=== PATIENT | male | born 1960 | race Two or more races ===

== ENCOUNTER 2016-04-29 03:44 | Inpatient (IN) | payer MEDICAID ==
[~2016-04-29] VITALS: Ht 185.4 cm; Wt 83.5 kg
--- NOTE | 2016-04-29 03:50 | NUR ---
PT [id number] C/O CHEST PAIN RADITATING TO LEFT ARM SINCE YESTERDAY MORNING, WORSE BLENDER. PER RA STARTED IV ON LEFT AC 20, AND GAVE ASA 162 AND NITRO SPRAY X3 WITH NO RELIEF. PT AOX3 RR EVEN AND UNLABORED. NO SOB NOTED. NAD NOTED. NO NVD AT THIS TIME. PT GOWNED AND PLACED ON MONITOR WAITING FOR MD MARTINEZ.
[2016-04-29] MEDS ORDERED: ONDANSETRON HCL/PF 4 MG/2 ML VIAL IV ONE (04:00)
[2016-04-29] MEDS ORDERED: MORPHINE SULFATE INJ 2 MG/ML DISP.SYRIN IV ONE (04:00)
[2016-04-29] MEDS ORDERED: MORPHINE SULFATE INJ 2 MG/ML DISP.SYRIN ONE (04:15)
[2016-04-29] MEDS ORDERED: ONDANSETRON HCL/PF 4 MG/2 ML VIAL ONE (04:15)
[2016-04-29] MEDS ORDERED: MORPHINE SULFATE INJ 4 MG/ML DISP.SYRIN ONE (04:15)
[2016-04-29 04:23] LABS: BASOPHILS % (AUTO) 0.1 % (0.0-2.0); EOSINOPHILS # (AUTO) 0.3 /CMM (0.0-0.7); EOSINOPHILS % (AUTO) 2.5 % (0.0-6.0); HEMATOCRIT 37 % (39-51); HEMOGLOBIN 12.4 g/dL (13.5-17.5); LYMPHOCYTES # (AUTO) 1.3 /CMM (0.8-4.8); LYMPHOCYTES % (AUTO) 9.2 % (20.0-44.0); MEAN CORPUSCULAR HEMOGLOBIN 31 PG (26.0-33.0); MEAN CORPUSCULAR HGB CONC 33 g/dl (31.0-36.0); MEAN CORPUSCULAR VOLUME 93 fL (80-96); MONOCYTES # (AUTO) 0.9 /CMM (0.1-1.30); MONOCYTES % (AUTO) 6.5 % (2.0-12.0); NEUTROPHILS # (AUTO) 11.6 /CMM (1.8-8.9); NEUTROPHILS % (AUTO) 81.7 % (43.0-81.0); PLATELET COUNT (AUTO) 209 /CMM (150-450); RDW COEFFICIENT OF VARIATION 13.1 (11.5-15.0); RED BLOOD CELL COUNT(AUTO) 4.02 MIL/uL (4.5-6.0); WHITE BLOOD COUNT (AUTO) 14.2 K/uL (4.3-11.0)
--- NOTE | 2016-04-29 04:35 | NUR ---
XRAY AT BEDSIDE.
[2016-04-29 04:41] LABS: INR 0.97 (0.87-1.13); PROTHROMBIN TIME 10.5 SECS (9.5-12.7)
[2016-04-29 04:42] LABS: CALCIUM, SERUM 8.9 mg/dL (8.5-10.1); CARBON DIOXIDE 28 mmol/L (21-32); CHLORIDE 103 mmol/L (98-107); CREATININE 1.5 mg/dL (0.6-1.3); GFR 48 mL/min (>60); GLUCOSE 148 mg/dL (74-106); POTASSIUM 4.3 mmol/L (3.5-5.1); SODIUM SERUM 138 mmol/L (136-145); UREA NITROGEN, BLOOD 24 mg/dL (7-18)
[2016-04-29 04:51] LABS: TROPONIN I < 0.017 ng/mL (0.00-0.056)
--- NOTE | 2016-04-29 05:22 | NUR ---
PT ASSIGNED TO [facility] [id number]
--- NOTE | 2016-04-29 05:40 | NUR ---
REPORT GIVEN TO MARTI.
[2016-04-29] MEDS ORDERED: NEBI5TAB8 PO (05:47)
[2016-04-29] MEDS ORDERED: ALLO300T2 PO (05:47)
[2016-04-29] MEDS ORDERED: ATOR40TA PO (05:47)
[2016-04-29] MEDS ORDERED: SITA1TAB6 PO (05:47)
[2016-04-29 06:10] VITALS: BP 110/66
--- NOTE | 2016-04-29 06:15 | NUR ---
PT TRANSFERED VIA ACLS PROTOCOL.
--- NOTE | 2016-04-29 06:15 | NUR ---
RN NOTES ADMITTED A 56 YEARS OLD, MALE PT FROM ER WITH CHIEF COMPLAIN OF CHEST PAIN UNDER STEVE ADLER FOOD SERVICE COORDINATOR. PT ALERT AND ORIENTED X4, STILL COMPLAINING OF CHEST PAIN 6/, MORPHINE GIVEN IN ER. ATTACHED TO TELEMONITOR WHICH READS SINUS RHYTHM AT 68. VITAL SIGNS BP 110/66,HR65, TEMP97.9, RR18 O2SAT 97% AT RA. KEPT COMFORTABLE AND ATTENDED. WILL F/U FOR ADMITTING ORDERS. WILL ENDORSE TO MORNING RN FOR CONTINUITY OF CARE.
[2016-04-29] MEDS ORDERED: Z GUARD REMEDY 2 OZ OINT TP PRN (07:30)
[2016-04-29] MEDS: PANTOPRAZOLE 40 MG TABLET.DR PO SCH (07:30)
[2016-04-29] MEDS ORDERED: MAGNESIUM HYDROXIDE 30 ML UDC PO PRN (07:30)
[2016-04-29] MEDS ORDERED: ONDANSETRON HCL/PF 4 MG/2 ML VIAL IVP PRN (07:30)
[2016-04-29] MEDS ORDERED: ZOLPIDEM TARTRATE 5 MG TABLET PO PRN (07:30)
[2016-04-29] MEDS ORDERED: ACETAMINOPHEN 325 MG TABLET PO PRN (07:30)
[2016-04-29] MEDS: MORPHINE SULFATE INJ 2 MG/ML DISP.SYRIN IM PRN (07:32)
--- NOTE | 2016-04-29 07:32 | NUR ---
RN NOTE / CP MORPHINE 2MG ADMINISTERED. WILL CONTINUE TO ASSESS AND MONITOR PATIENT CONDITION. DR AWAD NOTIFIES
--- NOTE | 2016-04-29 07:38 | NUR ---
RN OPEN NOTES RECEIVED REPORT FROM BARK SPUDDER NURSE. PATIENT ADMITTED TO MED SURG FLOOR AT 0610. MED RECON HAS NOT BEEN COMPLETED YET. PATIENT COMPLAINS ON CHEST PAIN. I PAGED VITOR TO ORDER THE MORPHINE AT 0715. VITOR ORDERED AND MORPHINE GAVE. PATIENT IS IN BED, BED LOCKED IN LOW POSITION. 2 SIDE RAILS ARE UP. IV SITE IS POTENT AND INTACT. PATIENT SON AND AT BED SIDE. TOGOLESE SPEAKER. SON KNOWS SOME DEGREE OF KHMER. WILL CONTINUE TO ASSESS AND MONITOR PATIENT THROUGH OUT MY SHIFT.
--- NOTE | 2016-04-29 07:40 | NUR ---
RN NOTES PATIENT COMPLAINS ON STRONG CHEST PAIN 10/28. DR BALBUENA AND DR AWAD MADE AWARE. BPTH MD'S ARE EVALUATING THE PATIENT CONDITION AND CONTINUE OF CARE
--- NOTE | 2016-04-29 07:58 | NUR ---
RN NOTE / CP BOTH DR BALBUENA AND DR AWAD ARE AT BED SIDE. PATIENT COMPLAINS OF CHEST PAIN 10/28 DESPITE THE MORPHINE. RECEIVED NEW ORDERS. WILL CARRY NEW ORDERS. Addendum: 04/29/16 at 1129 by DELIO ROYAL RN ORDERS CARRIED OUT. CT PULMONARY ANGIOPLASTY COMPLETED. EKG COMPLETED. LOVENOX ADMINISTERED. PATIENT CAME BACK FROM CT AT 0900 WITH LOW BLOOD PRESSURE. LOPRESSOR HELD, DR AWAD NOTIFIED. FLUID BOLUS HAS BEEN GIVEN. BLOOD PRESSURE IMPROVED. WILL CONTINUE TO MONITOR AND ASSESS PATIENT CONDITION.
[2016-04-29 08:00] VITALS: BP 99/63
[2016-04-29] MEDS: METOPROLOL TARTRATE 50 MG TABLET PO SCH ×3 (08:17→20:17)
[2016-04-29] MEDS ORDERED: CT SWABBABLE VALVE TRANS SET 1 EA INFUS.SET MC ONE (08:21)
[2016-04-29] MEDS ORDERED: IOHEXOL-350 100 ML VIAL IV ONE (08:21)
[2016-04-29] MEDS ORDERED: IV NS 0.9% 250 ML IV ONE (08:21)
[2016-04-29] MEDS ORDERED: IV SET PRIMARY PUMP SET 1 EA INFUS.SET MC ONE (08:40)
[2016-04-29] MEDS: IV NS 0.9% 1,000 ML IV PRN ×3 (08:50→19:37)
[2016-04-29] MEDS: ASPIRIN 81 MG TAB.CHEW PO SCH (08:56)
[2016-04-29] MEDS ORDERED: Medication Not On Formulary EA (Sitagliptin Phos/Metformin Hcl (Janumet 50-1,000 Mg Tabl PO SCH (09:00)
[2016-04-29] MEDS: ALLOPURINOL 100 MG TABLET PO SCH (09:01)
[2016-04-29] MEDS: ENOXAPARIN SODIUM 60 MG/0.6 ML DISP.SYRIN SQ SCH ×2 (09:06→20:33)
[2016-04-29] MEDS ORDERED: SIMETHICONE SUSP 40 MG/0.6 ML BOTTLE PO PRN (10:00)
[2016-04-29] MEDS ORDERED: MAG HYDROX/AL HYDROX/SIMETH 30 ML UDC PO PRN (11:00)
[2016-04-29] MEDS: SITAGLIPTIN PHOSPHATE 50 MG TABLET PO SCH ×2 (11:37→16:34)
[2016-04-29 16:00] VITALS: BP 101/65
--- NOTE | 2016-04-29 16:34 | NUR ---
RN NOTES / EB PARSON HELD TODAY DUE TO PATIENT'S PROCEDURE: CT WITH CONTRAST. EB TO BE HELD 48 HOURS AFTER PROCEDURE AND TO BE RESUME AGAIN ON 05/01/2016
[2016-04-29] MEDS: ATORVASTATIN 40 MG TABLET PO SCH (18:37)
--- NOTE | 2016-04-29 18:46 | NUR ---
RN CLOSING NOTES PATIENT IS IN BED, AWAKE. NO SIGN AND SYMPTOMS OF DISTRESS. CHEST PAIN 4/10 COMING DOWN. PAIN DID NOT RELIVED BY MORPHINE BUT IMPROVED WITH MAALOX. DR AWAD MADE AWARE. IV SITE IS POTENT AND INTACT. IV FLUID NS IS CURRENTLY RUNNING AT 125 ML/HR. PATIENT IS ALERT AND ORIENTED X3. 2L NC, O2 99%. TOMORROW MORNING: NEED TO FOLLOW UP WITH DR AWAD IF LOPRESSOR CAN BE GIVEN. LOPRESSOR HELD TODAY DUE TO LOW BLOOD PRESSURE. HOLD JANUVIA ON 04/30 AND RESUME ON 05/01 DUE TO IV CONTRAST TODAY AT 0830. PATIENT IS AMBULATORY AND SKIN IS INTACT. WILL ENDORSE TO TON CONTAINER FILLER NURSE FOR CONTINUATION OF CARE.
--- NOTE | 2016-04-29 19:35 | NUR ---
SSIS ETL DEVELOPER NOTE RECEIVED PATIENT FROM DAY SHIFT, PATIENT IS ALERT AND ORIENTEDX4, DENIES RESPIRATORY DISTRESS AND COMPLAINS OF MILD CHEST PAIN AT THIS TIME. IV ON LEFT AC IS PATENT AND INTACT, FLUID IS RUNNING.TELE MONITOR SR 73. SRX2, BED IN LOW POSITION, CALL LIGHT WITHIN REACH, WILL CONTINUE TO MONITOR PATIENT.
--- NOTE | 2016-04-29 20:20 | NUR ---
CONVERSION MAN NOTE PATIENT'S BP AT 1999 WAS 103/60 PULSE 71. HELD LOPRESSOR 50MG PO.
[2016-04-29 20:52] VITALS: BP 103/60
[2016-04-29] MEDS: HYDROCODONE/APAP 5/325MG 1 EACH TABLET PO PRN (22:54)
--- NOTE | 2016-04-29 22:55 | NUR ---
ACIDIZER NOTE PATIENT COMPLAINS OF HEADACHE 09/27, NORCO 5-325MG PO GIVEN. WILL MONITOR FOR EFFECTIVENESS.
[2016-04-30] VITALS: BP 98/58
[2016-04-30] MEDS: METOPROLOL TARTRATE 50 MG TABLET PO SCH ×4 (02:17→20:17)
[2016-04-30] MEDS: IV NS 0.9% 1,000 ML IV PRN ×3 (02:56→19:09)
[2016-04-30 04:30] VITALS: BP 91/61
[2016-04-30 06:12] LABS: BASOPHILS % (AUTO) 0.2 % (0.0-2.0); EOSINOPHILS # (AUTO) 0.2 /CMM (0.0-0.7); EOSINOPHILS % (AUTO) 2.1 % (0.0-6.0); HEMATOCRIT 33 % (39-51); HEMOGLOBIN 11.1 g/dL (13.5-17.5); LYMPHOCYTES # (AUTO) 1.4 /CMM (0.8-4.8); LYMPHOCYTES % (AUTO) 12.4 % (20.0-44.0); MEAN CORPUSCULAR HEMOGLOBIN 32 PG (26.0-33.0); MEAN CORPUSCULAR HGB CONC 34 g/dl (31.0-36.0); MEAN CORPUSCULAR VOLUME 94 fL (80-96); MONOCYTES # (AUTO) 1.3 /CMM (0.1-1.30); MONOCYTES % (AUTO) 11.6 % (2.0-12.0); NEUTROPHILS # (AUTO) 8.3 /CMM (1.8-8.9); NEUTROPHILS % (AUTO) 73.7 % (43.0-81.0); PLATELET COUNT (AUTO) 177 /CMM (150-450); RDW COEFFICIENT OF VARIATION 13.3 (11.5-15.0); RED BLOOD CELL COUNT(AUTO) 3.54 MIL/uL (4.5-6.0); WHITE BLOOD COUNT (AUTO) 11.2 K/uL (4.3-11.0)
[2016-04-30 06:20] LABS: ALANINE AMINOTRANSFERASE 21 U/L (12-78); ALBUMIN 2.8 g/dL (3.4-5.0); ALKALINE PHOSPHATASE 64 U/L (46-116); ASPARTATE AMINOTRANSFERASE 10 U/L (15-37); BILIRUBIN,TOTAL 0.9 mg/dL (0.2-1.0); CALCIUM, SERUM 8.2 mg/dL (8.5-10.1); CARBON DIOXIDE 28 mmol/L (21-32); CHLORIDE 107 mmol/L (98-107); CREATININE 1.2 mg/dL (0.6-1.3); GFR 63 mL/min (>60); GLUCOSE 143 mg/dL (74-106); MAGNESIUM 1.8 mg/dL (1.8-2.4); PHOSPHORUS 2.4 mg/dL (2.5-4.9); POTASSIUM 4.9 mmol/L (3.5-5.1); SODIUM SERUM 139 mmol/L (136-145); TOTAL PROTEIN, SERUM 6.4 g/dL (6.4-8.2); UREA NITROGEN, BLOOD 17 mg/dL (7-18)
[2016-04-30 06:40] LABS: TROPONIN I < 0.017 ng/mL (0.00-0.056)
--- NOTE | 2016-04-30 06:40 | NUR ---
MORTUARY BEAUTICIAN NOTE PATIENT IS RESTING IN BED COMFORTABLY, NO ACUTE EVENT NOTED DURING THE PROFILING MACHINE SETUP OPERATOR. IV ON LEFT AC IS PATENT AND INTACT, FLUID IS RUNNING. TELE MONITOR SR. WILL ENDORSE TO DAY SHIFT FOR KAILEY.
--- NOTE | 2016-04-30 07:14 | NUR ---
COMBINATION MACHINE TENDER INITIAL NOTES RECEIVED PATIENT IN BED AWAKE WITH AT BEDSIDE. ALERT AND ORIENTED X4, HEAD OF BED ELEVATED. ABLE TO VERBALIZED NEEDS WITH NO COMPLAINTS OF CHEST PAIN AT THIS TIME. IV ACCESS ON ON LEFT AC PATENT AND INTACT, IVF OF NS @ 125ML/HR IN PROGRESS, NO SIGNS OF INFILTRATION NOTED. ON TELE MONITORING WITH READINGS OF SINUS BRADYCARDIA WITH HR OF 49 @ THIS TIME. BED IN LOW POSITION AND LOCKED, CALL LIGHT WITHIN REACH. ALL SAFETY PRECAUTIONS MAINTAINED. WILL CONTINUE TO MONITOR PATIENT ACCORDINGLY. Addendum: 04/30/16 at 0857 by KI GORMAN RN ADDENDUM: PATIENT ON INHALATION VIA N/C @ 2LPM, TOLERATING WELL WITH NO ACUTE RESPIRATORY DISTRESS NOTED WITH 02 SAT OF 100%. WILL CONTINUE TO MONITOR
[2016-04-30 08:00] VITALS: BP 97/60
[2016-04-30] MEDS: ASPIRIN 81 MG TAB.CHEW PO SCH (08:12)
[2016-04-30] MEDS: PANTOPRAZOLE 40 MG TABLET.DR PO SCH (08:12)
[2016-04-30] MEDS: ALLOPURINOL 100 MG TABLET PO SCH (08:13)
[2016-04-30] MEDS: ENOXAPARIN SODIUM 60 MG/0.6 ML DISP.SYRIN SQ SCH (08:14)
[2016-04-30] MEDS: SITAGLIPTIN PHOSPHATE 50 MG TABLET PO SCH ×2 (08:27→16:52)
--- NOTE | 2016-04-30 09:33 | NUR ---
RN NOTES: PATIENT'S JANUVIA NOT GIVEN TODAY, IT'S HELD X48 HOURS AFTER PROCEDURE ( CT SCAN) AND TO BE RESUMED ON 05/01/2016.
--- NOTE | 2016-04-30 09:41 | NUR ---
RN NOTES DR AWAD ORDERED NUCLEAR MEDICINE MYOCARDIAL STRESS TEST FOR PATIENT. PROCEDURE EXPLAINED TO PATIENT AND , THEY VERBALIZED UNDERSTANDING. CONSENT SIGNED AND PLACED ON THE CHART.
[2016-04-30 10:32] LABS: CHOLESTEROL 69 mg/dL (<200); HDL CHOLESTEROL 28 mg/dL (40-60); LDL 32 mg/dL (0-99); TRIGLYCERIDES 81 mg/dL (30-150)
[2016-04-30] MEDS: HYDROCODONE/APAP 5/325MG 1 EACH TABLET PO PRN ×2 (12:10→17:42)
--- NOTE | 2016-04-30 15:58 | NUR ---
RN NOTES RECEIVED CALL FROM RADIOLOGY THAT PATIENT IS SCHEDULED ALREADY FOR NM MYOCARDIAL STRESS TEST TOMORROW MORNING (05/01/2016). PATIENT INFORMED AND TOLD HIM THAT HE WILL BE NPO AFTER MIDNIGHT AND VERBALIZED UNDERSTANDING. WILL ENDORSED TO HISTOLOGIC AIDE STAFF.
[2016-04-30 16:00] VITALS: BP 104/61
[2016-04-30] MEDS: ATORVASTATIN 40 MG TABLET PO SCH (17:37)
--- NOTE | 2016-04-30 18:52 | NUR ---
AGRICULTURAL EQUIPMENT MECHANIC CLOSING NOTES PATIENT RESTING IN BED WITH AT BEDSIDE. ALERT AND ORIENTED X4 IN NO ACUTE SIGNS OF DISTRESS. ALL DUE MEDS GIVEN PRESCRIBED AND DUE NEEDS/CARE PROVIDED. MAINTAINED ON 02 VIA N/C @ 2LPM, TOLERATING WELL WITH 02 SAT OF 98%. IVF OF NS @ 125ML/HR IN PROGRESS TO LEFT AC, NO SIGNS OF INFILTRATION OR PHLEBITIS TO IV SITE NOTED. CALL LIGHT WITHIN REACH. SAFETY PRECAUTIONS MAINTAINED. PATIENT FOR NM MYOCARDIAL STRESS TEST TOMORROW, 05/01/2016, CONSENT SIGNED. NPO POST MIDNIGHT. WILL ENDORSED TO FINE ARTS MODEL RN.
--- NOTE | 2016-04-30 19:38 | NUR ---
MS RN NOTE RECEIVED PATIENT FROM DAY SHIFT, PATIENT IS ALERT AND ORIENTEDX4, UZBEK SPEAKER, DENIES RESPIRATORY DISTRESS AND COMPLAINS OF MILD HEADACHE AT THIS TIME. IV ON LEFT AC IS PATENT AND INTACT, FLUID IS RUNNING. SRX2, BED IN LOW POSITION, CALL LIGHT WITHIN REACH, WILL CONTINUE TO MONITOR PATIENT.
[2016-04-30 20:00] VITALS: BP_SYST 106; BP_SYST 111; BP_DIAS 68; BP_DIAS 73
[2016-05-01] MEDS: MORPHINE SULFATE INJ 2 MG/ML DISP.SYRIN IM PRN ×2 (00:44→23:20)
--- NOTE | 2016-05-01 00:49 | NUR ---
MS RN NOTE PATIENT COMPLAINS OF CHEST PAIN, MORPHINE 2MG IVP GIVEN. WILL MONITOR FOR EFFECTIVENESS.
[2016-05-01] MEDS: METOPROLOL TARTRATE 50 MG TABLET PO SCH ×4 (02:17→20:48)
[2016-05-01] MEDS: IV NS 0.9% 1,000 ML IV PRN ×2 (03:16→23:20)
--- NOTE | 2016-05-01 06:32 | NUR ---
MS RN NOTE PATIENT IS RESTING IN BED COMFORTABLY, DENIES RESPIRATORY DISTRESS AND COMPLAINS OF MILD CHEST PAIN AT THIS TIME, BUT TOLERABLE. IV ON LEFT AC IS PATENT AND INTACT, FLUID IS RUNNING. WILL ENDORSE TO DAY SHIFT NURSE FOR KAILEY.
[2016-05-01 06:54] LABS: BASOPHILS % (AUTO) 0.1 % (0.0-2.0); EOSINOPHILS % (AUTO) 0.2 % (0.0-6.0); HEMATOCRIT 35 % (39-51); HEMOGLOBIN 11.6 g/dL (13.5-17.5); LYMPHOCYTES # (AUTO) 1.1 /CMM (0.8-4.8); LYMPHOCYTES % (AUTO) 8.9 % (20.0-44.0); MEAN CORPUSCULAR HEMOGLOBIN 31 PG (26.0-33.0); MEAN CORPUSCULAR HGB CONC 33 g/dl (31.0-36.0); MEAN CORPUSCULAR VOLUME 94 fL (80-96); MONOCYTES # (AUTO) 1.4 /CMM (0.1-1.30); MONOCYTES % (AUTO) 11.1 % (2.0-12.0); NEUTROPHILS # (AUTO) 9.7 /CMM (1.8-8.9); NEUTROPHILS % (AUTO) 79.7 % (43.0-81.0); PLATELET COUNT (AUTO) 174 /CMM (150-450); RDW COEFFICIENT OF VARIATION 13.3 (11.5-15.0); RED BLOOD CELL COUNT(AUTO) 3.71 MIL/uL (4.5-6.0); WHITE BLOOD COUNT (AUTO) 12.2 K/uL (4.3-11.0)
[2016-05-01 07:04] LABS: ALBUMIN 2.7 g/dL (3.4-5.0); BILIRUBIN,TOTAL 0.9 mg/dL (0.2-1.0); CALCIUM, SERUM 8.1 mg/dL (8.5-10.1); CREATININE 1.1 mg/dL (0.6-1.3); MAGNESIUM 1.9 mg/dL (1.8-2.4); PHOSPHORUS 2.4 mg/dL (2.5-4.9); POTASSIUM 4.6 mmol/L (3.5-5.1); TOTAL PROTEIN, SERUM 6.6 g/dL (6.4-8.2)
[2016-05-01] MEDS: PANTOPRAZOLE 40 MG TABLET.DR PO SCH (07:30)
[2016-05-01 08:00] VITALS: BP 126/84
--- NOTE | 2016-05-01 08:15 | NUR ---
MS/RN AM NOTES RECEIVED PATIENT IN BED, AWAKE, ALERT, WITHOUT SOB, C/O CHEST TIGHTNESS 04/27, AWARE ABOUT CARDIAC TEST, REMAINS NPO. IV LEFT AC PATENT, PATIENT IS COMFORTABLE IN BED WITH CALL LIGHT WITHIN EASY REACH. WILL CONTINUE TO MONITOR ACCORDINGLY
[2016-05-01] MEDS ORDERED: REGADENOSON 0.4 MG/5 ML DISP.SYRIN IVP ONE (09:00)
--- NOTE | 2016-05-01 10:38 | NUR ---
CARDIAC TEST DONE, PATIENT BACK TO HIS ROOM, VS 111/74, 76, 99 % RA, 20, C/O CHEST TIGHTNESS PAIN 09/27. NO SOB, O2 APPLIED 2L/M N/C. SEEN BY DR. AWAD WITH ORDER NITRO SL. MYLANTA FOR STOMACH UPSET, EKG STAT. DR. MONIQUE CRUZ EXAMINING PATIENT, ORDER RECEIVED TORADOL 15 MG IM X 1, AND TO NOTIFY PHYSICIAN FOR EFFECTIVENESS. NOTED CARRIED OUT.
--- NOTE | 2016-05-01 10:56 | NUR ---
REASSESSED CHEST PAIN WITH TIGHTNESS, RELIEVED 5/10 AFTER NITRO SL ADMINISTRATION. AWAKE, VERBALLY RESPONSIVE, NO CHANGES IN MENTAL STATUS, FAMILY AT THE BEDSIDE.DR AWAD INFORMED. VITAL SIGNS 87/67, 90, 20, 98.0 93 % WITH 2L/M N/C, NO SOB, RESPIRATION UNLABORED, EVEN. PATIENT PICKED UP BY BENJA, ON W/C WITH [address], FOR SECOND PART OF CARDIAC TEST
[2016-05-01] MEDS ORDERED: KETOROLAC TROMETHAMINE INJ 30 MG/ML VIAL IV ONE (11:00)
[2016-05-01] MEDS ORDERED: NITROGLYCERIN 0.4 MG/TAB BOTTLE SL PRN (11:00)
--- NOTE | 2016-05-01 12:27 | NUR ---
INFORMED DR. MONIQUE CRUZ PATIENT RELIEVED FROM PAIN 6/0 AFTER NITRO SL, PER MD OK TO GIVE TORADOL 15 MG IV X 1, WILL CONTINUE TO MONITOR ACCORDINGLY, AND NOTIFY MD IF ANY FURTHER CHANGED
--- NOTE | 2016-05-01 13:00 | NUR ---
PATIENT HAS NO CHEST PAIN OR TIGHTNESS, 0/10 . AWAKE ALERT, IN HAPPY MOOD, EATING LUNCH. DR. MONIQUE CRUZ MADE AWARE ABOUT PATEIN'S CONDITION.
[2016-05-01] MEDS: SITAGLIPTIN PHOSPHATE 50 MG TABLET PO SCH ×2 (13:52→16:31)
[2016-05-01] MEDS: ALLOPURINOL 100 MG TABLET PO SCH (13:53)
[2016-05-01] MEDS: ASPIRIN 81 MG TAB.CHEW PO SCH (13:53)
[2016-05-01] MEDS ORDERED: K PHOS NEUTRAL 250 MG TABLET PO ONE (15:30)
--- NOTE | 2016-05-01 15:47 | NUR ---
HELD BLOOD PRESSURE MEDICATION. VITAL SIGNS 92/67, 89, 95% WITH O2 2L/M N/C, 20, 98.5, 0/10 PAIN. PATIENT AWAKE, ALERT, NO CHEST PAIN. WILL CONTINUE TO MONITOR
[2016-05-01 16:00] VITALS: BP 92/67
--- NOTE | 2016-05-01 17:55 | NUR ---
ORDERS RECEIVED FOR UPPER GI ENDOSCOPY OVER THE PHONE, FROM DR. HO PER DR. MONIQUE CRUZ'S REFERRAL FOR GI CONSULT SUSPECTING GASTRITIS. ORDERS NOTED, CARRIED OUT, WILL INITIATE NPO AFTER MIDNIGHT ORDERED PER DR. HO. PATIENT AND FAMILY INFORMED, WILL ENDORSE TO THE FISH DRESSING MACHINE FEEDER
[2016-05-01] MEDS: ATORVASTATIN 40 MG TABLET PO SCH (18:50)
--- NOTE | 2016-05-01 18:58 | NUR ---
MS/RN CLOSING NOTES PATIENT IS IN BED, AWAKE, ALERT, SPOUSE AT THE BEDSIDE, NO SOB, NO CHEST PAIN, 0/10, RESTING COMFORTABLY IN BED. O2 IN PACE 2L/M N/C, TOLERATING WELL, IV LINE PATENT LAC . NO DIC
--- NOTE | 2016-05-01 19:30 | NUR ---
rn note; received pt in bed w/ family at the bed side. breathing evenly. no sob. no distress. no c/o pain or discomfort. denied chest pain. needs attended. on ongoing ivf hydration./ call light within reach. will cont to monitor.
[2016-05-01 20:00] VITALS: BP 131/87
[2016-05-01 20:14] VITALS: BP 131/87
--- NOTE | 2016-05-01 23:20 | NUR ---
RN NOTE; MORPHINE GIVEN FOR C/O CHEST PAIN. WILL CONT TO MONITOR. USING NURSING STAFF INTERPRETED EXPLAINED THE PROCEDURE FOR THE PT FOR UPPER GI ENDOSCOPY FOR CONSENT. PT UNDERSTOOD THE PROCEDURE AND OK WITH IT HOWEVER WILL WAIT FOR THE TO SIGN THE CONSENT. PER PT HIS WILL BE HERE AROUND 8AM. WILL ENDORSE TO AM SHIFT.
[2016-05-02] MEDS: METOPROLOL TARTRATE 50 MG TABLET PO SCH ×2 (03:21→11:57)
--- NOTE | 2016-05-02 06:06 | NUR ---
RN NOTE; PT IN BED SLEEPING, AROUSES EASILY, BREATHING EVENLY. NO SOB. NO DISTRESS. REMAINED STABLE DURING THE MANAGER SOLAR W/ ONE TIME C/O CP WHICH RELIVED BY MORPHINE. REMAINED NPO AT THIS TIME FOR UPPER GI ENDOSCOPY TODAY. WILL SIGN THE CONSENT. ON ONGOING IVF HYDRATION. TIANA WELL. NEEDS ATTENDED . BED LOW LOCKED. CALL LIGHT WITHIN REACH. WILL CONT TO MONITOR AND WILL ENDORSE TO AM SHIFT FOR KAILEY.
[2016-05-02 07:10] LABS: BASOPHILS % (AUTO) 0.1 % (0.0-2.0); EOSINOPHILS % (AUTO) 0.4 % (0.0-6.0); HEMATOCRIT 34 % (39-51); HEMOGLOBIN 11.3 g/dL (13.5-17.5); LYMPHOCYTES # (AUTO) 1.3 /CMM (0.8-4.8); LYMPHOCYTES % (AUTO) 10.7 % (20.0-44.0); MEAN CORPUSCULAR HEMOGLOBIN 31 PG (26.0-33.0); MEAN CORPUSCULAR HGB CONC 34 g/dl (31.0-36.0); MEAN CORPUSCULAR VOLUME 94 fL (80-96); MONOCYTES # (AUTO) 1.3 /CMM (0.1-1.30); MONOCYTES % (AUTO) 10.1 % (2.0-12.0); NEUTROPHILS # (AUTO) 9.9 /CMM (1.8-8.9); NEUTROPHILS % (AUTO) 78.7 % (43.0-81.0); PLATELET COUNT (AUTO) 200 /CMM (150-450); RDW COEFFICIENT OF VARIATION 13.2 (11.5-15.0); RED BLOOD CELL COUNT(AUTO) 3.59 MIL/uL (4.5-6.0); WHITE BLOOD COUNT (AUTO) 12.6 K/uL (4.3-11.0)
--- NOTE | 2016-05-02 07:13 | NUR ---
RN OPEN NOTES RECEIVED REPORT FROM TRACK LAYING MACHINE OPERATOR NURSE. PATIENT IS IN BED. ALERT AND ORIENTED X3. NO COMPLAIN OF PAIN. NO SIGN AND SYMPTOMS OF DISTRESS. BED IS IN LOW POSITION, LOCKED AND 2 SIDE RAILS ARE UP. IV SITE IS INTACT AND POTENT, NS @125 ML/HR. WILL CONTINUE TO ASSESS AND MONITOR PATIENT DURING MY SHIFT.
[2016-05-02 07:34] LABS: ALBUMIN 2.5 g/dL (3.4-5.0); BILIRUBIN,TOTAL 0.9 mg/dL (0.2-1.0); CALCIUM, SERUM 8.1 mg/dL (8.5-10.1); CREATININE 1.1 mg/dL (0.6-1.3); PHOSPHORUS 2.4 mg/dL (2.5-4.9); POTASSIUM 3.9 mmol/L (3.5-5.1); TOTAL PROTEIN, SERUM 6.4 g/dL (6.4-8.2)
[2016-05-02 08:00] VITALS: BP 117/78
[2016-05-02] MEDS ORDERED: IV SET PRIMARY PUMP SET 1 EA INFUS.SET MC ONE (08:22)
[2016-05-02] MEDS: IV NS 0.9% 1,000 ML IV PRN (08:27)
--- NOTE | 2016-05-02 08:38 | NUR ---
RN NOTES 0900 MEDS PATIENT IS NPO. HELD ALL MEDS. WILL ADMINISTER AFTER THE PATIENT COMING BACK FROM EGD
--- NOTE | 2016-05-02 08:50 | NUR ---
CARIN NOTES PATIENT IS OFF THE FLOOR FOR EGD PROCEDURE Addendum: 05/02/16 at 1026 by DELIO ROYAL RN PATIENT CAME BACK TO THE FLOOR.
[2016-05-02] MEDS: ASPIRIN 81 MG TAB.CHEW PO SCH (11:56)
[2016-05-02] MEDS: ALLOPURINOL 100 MG TABLET PO SCH (11:56)
[2016-05-02] MEDS: SITAGLIPTIN PHOSPHATE 50 MG TABLET PO SCH (11:56)
[2016-05-02] MEDS: PANTOPRAZOLE 40 MG TABLET.DR PO SCH (11:56)
[2016-05-02 11:57] VITALS: BP 123/82
[2016-05-02] MEDS ORDERED: PANT40TA2 PO (13:16)
[2016-05-02] MEDS ORDERED: SUCR1TAB26 PO (13:16)
--- NOTE | 2016-05-02 15:01 | NUR ---
DISCHARGE NOTE DISCHARGE ORDERS RECEIVED. PATIENT IS STABLE. VITAL SIGNS ARE STABLE. PATIENT DENIED PAIN. NO SIGN AND SYMPTOMS OF DISTRESS. IV SITE REMOVED. ID BAND REMOVED. DISCHARGE PACKAGE PRINTED AND GAVE TO PATIENT. DISCHARGE ORDERS EXPLAINED TO PATIENT AND . PATIENT DC'S WITH ALL HIS PERSONAL BELONGING. PATIENT ESCORTED DOWN WITH A WHEELCHAIR BY A PUMPMAN AND HIS . PATIENT LEFT THE HOSPITAL VIA A PRIVATE CAR
== END 2016-05-02 15:00 | disposition home or self-care (01) | DRG 241 ==
LOC: ER 03:47 → TELE 05:27 → MED 04-30 20:19
PROVIDERS: ADMIT Nurse Practitioner Acute Care; ATTEND Internal Medicine
PROC: 0DJ08ZZ Inspection of Upper Intestinal Tract, Via Natural or Artificial Opening Endoscopic (ICD-10-PCS; principal; 2016-05-02 09:17)
DX: K29.60 Other gastritis without bleeding (principal); N17.0 Acute kidney failure with tubular necrosis; I11.9 Hypertensive heart disease without heart failure; E11.9 Type 2 diabetes mellitus without complications; D72.829 Elevated white blood cell count, unspecified; K25.9 Gastric ulcer, unspecified as acute or chronic, without hemorrhage or perforation; I27.2 Other secondary pulmonary hypertension; J98.11 Atelectasis; M10.9 Gout, unspecified; Z95.5 Presence of coronary angioplasty implant and graft; I25.10 Atherosclerotic heart disease of native coronary artery without angina pectoris
CPT/HCPCS: 36415; 71010-TC; 80048-TC; 80053-TC; 80061-TC; 83735-TC; 83880; 84100-TC; 84484-TC; 85025-TC; 85610-TC; 87081-TC; 88305-TC; 88313-TC; 88342; 93307-TC; 94799-TC; A4606; A9502; J1650; J1885; J2270; J2405; J2785; J7030; J7050; Q9967; Z7610

== ENCOUNTER 2016-05-13 15:49 | Inpatient (IN) | payer MEDICAID ==
[~2016-05-13] VITALS: Ht 177.8 cm; Wt 79.4 kg
[~2016-05-13 15:49] MED LIST: ALLO300T2 PO; ATOR40TA PO; NEBI5TAB8 PO; PANT40TA2 PO; SITA1TAB6 PO; SUCR1TAB26 PO
--- NOTE | 2016-05-13 15:49 | NUR ---
PT BIB SON C/O CHEST PAIN RADIATES TO LEFT SHOULDER X LAST NIGHT. PLACED ON MONITOR. VSS. AWAITING MD ORDER.
--- NOTE | 2016-05-13 16:10 | NUR ---
XRAY AT BEDSIDE
--- NOTE | 2016-05-13 16:18 | NUR ---
RAC #[id number] IV ACCESS . BLOOD SAMPLE COLLECTED SENT TO LAB
[2016-05-13] MEDS ORDERED: PANT40TA2 PO (16:30)
[2016-05-13] MEDS ORDERED: SUCR1TAB26 PO (16:30)
[2016-05-13] MEDS ORDERED: ASPI81TA2 PO (16:31)
[2016-05-13 16:35] LABS: BASOPHILS # (AUTO) 0.3 /CMM (0.0-0.2); BASOPHILS % (AUTO) 1.7 % (0.0-2.0); EOSINOPHILS % (AUTO) 0.2 % (0.0-6.0); HEMATOCRIT 39 % (39-51); HEMOGLOBIN 12.5 g/dL (13.5-17.5); LYMPHOCYTES # (AUTO) 1.1 /CMM (0.8-4.8); LYMPHOCYTES % (AUTO) 6.5 % (20.0-44.0); MEAN CORPUSCULAR HEMOGLOBIN 30 PG (26.0-33.0); MEAN CORPUSCULAR HGB CONC 32 g/dl (31.0-36.0); MEAN CORPUSCULAR VOLUME 93 fL (80-96); MONOCYTES # (AUTO) 1.1 /CMM (0.1-1.30); MONOCYTES % (AUTO) 6.4 % (2.0-12.0); NEUTROPHILS # (AUTO) 14.7 /CMM (1.8-8.9); NEUTROPHILS % (AUTO) 85.2 % (43.0-81.0); PLATELET COUNT (AUTO) 382 /CMM (150-450); RDW COEFFICIENT OF VARIATION 12.9 (11.5-15.0); RED BLOOD CELL COUNT(AUTO) 4.13 MIL/uL (4.5-6.0); WHITE BLOOD COUNT (AUTO) 17.3 K/uL (4.3-11.0)
[2016-05-13 16:39] LABS: CALCIUM, SERUM 9.6 mg/dL (8.5-10.1); CARBON DIOXIDE 24 mmol/L (21-32); CHLORIDE 101 mmol/L (98-107); CREATININE 2.3 mg/dL (0.6-1.3); GFR 30 mL/min (>60); GLUCOSE 132 mg/dL (74-106); POTASSIUM 4.9 mmol/L (3.5-5.1); SODIUM SERUM 137 mmol/L (136-145); UREA NITROGEN, BLOOD 43 mg/dL (7-18)
[2016-05-13 16:46] LABS: ALANINE AMINOTRANSFERASE 89 U/L (12-78); ALBUMIN 3.2 g/dL (3.4-5.0); ALKALINE PHOSPHATASE 140 U/L (46-116); ASPARTATE AMINOTRANSFERASE 55 U/L (15-37); BILIRUBIN,DIRECT 0.1 mg/dL (0.0-0.2); BILIRUBIN,TOTAL 0.5 mg/dL (0.2-1.0); TOTAL PROTEIN, SERUM 8.2 g/dL (6.4-8.2)
[2016-05-13 16:48] LABS: TROPONIN I < 0.017 ng/mL (0.00-0.056)
[2016-05-13 16:56] LABS: INR 1.1 (0.87-1.13); PROTHROMBIN TIME 11.8 SECS (9.5-12.7)
[2016-05-13] MEDS ORDERED: ONDANSETRON HCL/PF 4 MG/2 ML VIAL IVP ONE (17:00)
[2016-05-13] MEDS ORDERED: ASPIRIN 81 MG TAB.CHEW PO ONE (17:00)
[2016-05-13] MEDS ORDERED: NITROGLYCERIN PACKET 1 GM PACKET TD ONE (17:00)
[2016-05-13] MEDS ORDERED: MORPHINE SULFATE INJ 2 MG/ML DISP.SYRIN IV ONE (17:00)
[2016-05-13] MEDS ORDERED: ASPIRIN 81 MG TAB.CHEW ONE (17:02)
[2016-05-13] MEDS ORDERED: MORPHINE SULFATE INJ 4 MG/ML DISP.SYRIN ONE (17:02)
[2016-05-13] MEDS ORDERED: ONDANSETRON HCL/PF 4 MG/2 ML VIAL ONE (17:03)
[2016-05-13] MEDS ORDERED: NITROGLYCERIN PACKET 1 GM PACKET ONE (17:03)
--- NOTE | 2016-05-13 17:45 | NUR ---
CALLED PHARMACY FOR AZITHROMYCIN PREMIX
--- NOTE | 2016-05-13 17:45 | NUR ---
LAB AT BEDSIDE COLLECTING BLOOD FOR SEPSIS WORKUP
[2016-05-13] MEDS ORDERED: IV SET PRIMARY PUMP SET 1 EA INFUS.SET MC ONE ×3 (17:50→20:58)
[2016-05-13] MEDS ORDERED: CEFTRIAXONE 1GM BAG (ER ONLY) 50 ML IV ONE ×2 (17:50→18:00)
[2016-05-13] MEDS ORDERED: AZITHROMYCIN 500 MG in IV D5W 250 ML IV ONE (18:00)
[2016-05-13 18:17] LABS: LACTIC ACID 1.2 mmol/L (0.4-2.0)
--- NOTE | 2016-05-13 18:44 | NUR ---
GAVE REPORT TO CARIN HAMPTON. TELEMETRY [id number]
[2016-05-13] MEDS ORDERED: IV NS 0.9% 1,000 ML IV PRN (18:48)
[2016-05-13 18:52] LABS: APPEARANCE,URINE Clear (CLEAR); BILIRUBIN,URINE Negative (NEGATIVE); BLOOD, URINE Negative Ery/uL (NEGATIVE); COLOR,URINE Yellow (YELLOW); KETONES,URINE Negative (NEGATIVE); LEUKOCYTE ESTERASE ,URINE Negative (NEGATIVE); NITRITE, URINE Negative (NEGATIVE); PROTEIN,URINE 30 mg/dl (NEGATIVE); UGLUCOSE Negative (NEGATIVE); UROBILINOGEN,URINE 0.2 EU/dL (0.2)
[2016-05-13] MEDS ORDERED: ACETAMINOPHEN 325 MG TABLET PO PRN (19:00)
[2016-05-13] MEDS: IV NS 0.9% 1,000 ML IV SCH (19:00)
[2016-05-13] MEDS ORDERED: MAG HYDROX/AL HYDROX/SIMETH 30 ML UDC PO PRN (19:00)
[2016-05-13] MEDS ORDERED: MAGNESIUM HYDROXIDE 30 ML UDC PO PRN (19:00)
[2016-05-13] MEDS ORDERED: INSULIN REGULAR, HUMAN 100 UNIT/ML 3 ML VIAL SQ PRN (19:00)
[2016-05-13] MEDS ORDERED: ONDANSETRON HCL/PF 4 MG/2 ML VIAL IVP PRN (19:00)
[2016-05-13] MEDS ORDERED: *INSULIN REGULAR(HUMULIN R)HUM 100 UNIT/ML VIAL SQ PRN (19:00)
[2016-05-13] MEDS ORDERED: ZOLPIDEM TARTRATE 5 MG TABLET PO PRN (19:00)
[2016-05-13] MEDS ORDERED: Z GUARD REMEDY 2 OZ OINT TP PRN (19:00)
[2016-05-13] MEDS ORDERED: DEXTROSE 50%-WATER 50 ML DISP.SYRIN IV PRN (19:00)
[2016-05-13 19:30] VITALS: BP 90/57
--- NOTE | 2016-05-13 19:30 | NUR ---
RN NOTES RECEIVED PT FROM ER WITH DX. OF CHEST PAIN DUE TO PNA, A/OX4, SW[place] SPEAKING, FAMILY AT BEDSIDE, SR ON TELE MONITOR HR-80, COMPLAINED OF SHOULDER PAIN, ADMISSION INSTRUCTION WAS GIVEN CALL LIGHT WITHIN REACH, SIDERAILS UPX2 CONTINUE TO MONITOR
[2016-05-13 20:00] VITALS: BP 89/57
--- NOTE | 2016-05-13 20:15 | NUR ---
RN NOTES DR. AKBAR CAME AND INFORMED HER REGARDING PT. BLOOD PRESSURE IS 89/55 BUT PT. IS ASYMPTOMATIC. DR. AKBAR WENT TO SEE THE PT AND NO ORDER WAS GIVEN, JUST MONITOR THE PT.
[2016-05-13] MEDS: PANTOPRAZOLE 40 MG VIAL IV SCH (21:10)
[2016-05-13] MEDS: SUCRALFATE 1 G TABLET PO SCH (21:10)
[2016-05-13] MEDS: HYDROCODONE/APAP 5/325MG 1 EACH TABLET PO PRN (21:10)
[2016-05-13] MEDS ORDERED: BLOOD SUGAR DIAGNOSTIC 1 EACH STRIP IN SCH (22:00)
[2016-05-13] MEDS: BLOOD SUGAR DIAGNOSTIC 1 EACH STRIP VI SCH (22:05)
[2016-05-13 23:20] LABS: ADD URINE CULTURE NO; BACTERIA,URINE None seen /HPF (None Seen); HYALINE CASTS, URINE Few /LPF (None Seen); RBC,URINE 0-2 /HPF (0-2); SQUAMOUS EPITHELIAL CELL,UR Few /HPF (None Seen); WBC,URINE 0-2 /HPF (0-3)
[2016-05-13 23:21] LABS: MUCUS,URINE Rare /LPF (None Seen)
[2016-05-14] VITALS: BP_SYST 83; BP_SYST 87; BP_DIAS 56
--- NOTE | 2016-05-14 01:25 | NUR ---
RN NOTES SPOKE TO STEVE ADLER-MONTANA AND INFORMED HER REGARDING PT. BLOOD PRESSURE OF 87/56 AND PT IS ASYMPTOMATIC- NO ORDER WAS GIVEN
[2016-05-14 04:00] VITALS: BP 95/64
[2016-05-14] MEDS: IV NS 0.9% 1,000 ML IV SCH ×2 (05:53→16:21)
--- NOTE | 2016-05-14 06:32 | NUR ---
RN NOTES AWAKE, IV FLUID RUNNING, IV LINE PATENT NO REDNESS OR SWOLLEN, SHAMAR WENT UP TO 95/64, DENIES PAIN, NO SOB, MORNING CARE RENDERED, PT. NEEDS ATTENDED
--- NOTE | 2016-05-14 07:30 | NUR ---
MANAGER QUALITY COMPLIANCE NOTES PT IN BED, AWAKE, ALERT AND ORIENTED, NO COMPLAINT OF PAIN, BREATHING PATTERN NORMAL, IV FLUIDS INFUSING WELL, CALL LIGHT WITHIN REACH, NEEDS ATTENDED, KEPT MOTORCYCLE MECHANIC APPRENTICE BED.
[2016-05-14 07:43] LABS: CALCIUM, SERUM 8.4 mg/dL (8.5-10.1); CREATININE 1.6 mg/dL (0.6-1.3); MAGNESIUM 1.6 mg/dL (1.8-2.4); PHOSPHORUS 2.8 mg/dL (2.5-4.9); POTASSIUM 5.1 mmol/L (3.5-5.1)
[2016-05-14 08:00] VITALS: BP 95/64
[2016-05-14 08:40] LABS: BASOPHILS % (AUTO) 0.2 % (0.0-2.0); EOSINOPHILS % (AUTO) 0.3 % (0.0-6.0); HEMATOCRIT 34 % (39-51); HEMOGLOBIN 10.9 g/dL (13.5-17.5); LYMPHOCYTES # (AUTO) 1.5 /CMM (0.8-4.8); LYMPHOCYTES % (AUTO) 10.4 % (20.0-44.0); MEAN CORPUSCULAR HEMOGLOBIN 31 PG (26.0-33.0); MEAN CORPUSCULAR HGB CONC 33 g/dl (31.0-36.0); MEAN CORPUSCULAR VOLUME 94 fL (80-96); MONOCYTES # (AUTO) 1.2 /CMM (0.1-1.30); MONOCYTES % (AUTO) 8.2 % (2.0-12.0); NEUTROPHILS # (AUTO) 11.3 /CMM (1.8-8.9); NEUTROPHILS % (AUTO) 80.9 % (43.0-81.0); PLATELET COUNT (AUTO) 316 /CMM (150-450); RDW COEFFICIENT OF VARIATION 13.3 (11.5-15.0); RED BLOOD CELL COUNT(AUTO) 3.58 MIL/uL (4.5-6.0)
[2016-05-14] MEDS: PANTOPRAZOLE 40 MG VIAL IV SCH ×2 (08:43→16:21)
[2016-05-14] MEDS: ALLOPURINOL 100 MG TABLET PO SCH (08:43)
[2016-05-14] MEDS: HYDROCODONE/APAP 5/325MG 1 EACH TABLET PO PRN ×2 (08:44→16:25)
[2016-05-14] MEDS: AZITHROMYCIN 250 MG TABLET PO SCH (08:44)
[2016-05-14] MEDS: BLOOD SUGAR DIAGNOSTIC 1 EACH STRIP VI SCH ×4 (08:44→21:36)
[2016-05-14] MEDS: SUCRALFATE 1 G TABLET PO SCH ×4 (08:44→21:36)
[2016-05-14] MEDS: METOPROLOL TARTRATE 25 MG TABLET PO SCH ×2 (11:36→21:00)
[2016-05-14] MEDS ORDERED: SECONDARY IV SET 1 EA INFUS.SET MC ONE ×2 (11:53→18:26)
[2016-05-14] MEDS: Magnesium 1GM/D5W 100ML PREMIX 100 ML IV SCH ×4 (12:00→17:07)
--- NOTE | 2016-05-14 13:00 | NUR ---
DOCUMENT EXAMINER NOTES PT IN BED, RESTING, DENIES PAIN, NOT IN DISTRESS, IV FLUIDS INFUSING WELL, SEEN BY DR. AKBAR AND DR. AWAD, PLAN OF CARE DISCUSSED WITH PT AND AT BEDSIDE, BLOOD SUGAR CHECKED, NO S/S OF HYPO/HYPERGLYCEMIA NOTED.
[2016-05-14 16:00] VITALS: BP 88/55
[2016-05-14] MEDS ORDERED: CEFTRIAXONE 1 G in IV D5W 50 ML IV SCH (18:00)
[2016-05-14] MEDS ORDERED: ATORVASTATIN 40 MG TABLET PO SCH (18:00)
--- NOTE | 2016-05-14 18:39 | NUR ---
RN MS NOTES PT IN BED, AWAKE, ALERT AND ORIENTED, NO COMPLAINT OF PAIN OR ANY DISCOMFORT, BREATHING PATTERN NORMAL, PM MEDS GIVEN, PT REFUSED INSULIN THIS AFTERNOON, PATIENT EDUCATION PROVIDED, VERBALIZED UNDERSTANDING, PM CARE RENDERED, ALL NEEDS ATTENDED.
[2016-05-14 20:00] VITALS: BP_SYST 104; BP_SYST 92; BP_DIAS 55; BP_DIAS 61
--- NOTE | 2016-05-14 20:00 | NUR ---
RECEIVED PATIENT IN BED, ALERT AND ORIENTED X4, CALM, NO SOB, NO DISTRESS, ON ROOM AIR, 02 SAT 93%, DENIES ANY PAIN AT THIS TIME, NO CHEST PAIN. RIGHT AC #20 PERIPHERAL LINE IS INFUSING WITH NS AT 100 CC/HR, AT THE BEDSIDE, KEPT SAFE AND COMFORTABLE, CALL LIGHT WITHIN REACH.
--- NOTE | 2016-05-14 21:46 | NUR ---
MILY HELD, BP 98/65 HR 84. BG 107 MG/DL, NO INSULIN COVERAGE
--- NOTE | 2016-05-15 03:46 | NUR ---
GIVEN REPORT TO NEFTALI FOR CONTINUITY OF CARE.
[2016-05-15] MEDS: IV NS 0.9% 1,000 ML IV SCH (04:18)
--- NOTE | 2016-05-15 07:30 | NUR ---
RN MS NOTES PT IN BED, AWAKE, ALERT AND ORIENTED, NO COMPLAINT OF PAIN AT THIS TIME, RESPIRATIONS NORMAL, IV FLUIDS INFUSING WELL, CALL LIGHT WITHIN REACH, NEEDS ATTENDED.
[2016-05-15] MEDS: BLOOD SUGAR DIAGNOSTIC 1 EACH STRIP VI SCH ×2 (07:31→12:01)
--- NOTE | 2016-05-15 07:32 | NUR ---
MS RN NOTE PATIENT STABLE. BLOOD SUGAR 105. NO COVERAGE NEEDED. WILL ENDORSE TO DAY SHIFT FOR KAILEY.
[2016-05-15 07:42] LABS: CALCIUM, SERUM 8.4 mg/dL (8.5-10.1); CREATININE 1.3 mg/dL (0.6-1.3); MAGNESIUM 1.9 mg/dL (1.8-2.4); POTASSIUM 4.7 mmol/L (3.5-5.1)
[2016-05-15 08:00] VITALS: BP 109/74
[2016-05-15] MEDS: AZITHROMYCIN 250 MG TABLET PO SCH (08:37)
[2016-05-15] MEDS: SUCRALFATE 1 G TABLET PO SCH ×2 (08:37→12:01)
[2016-05-15] MEDS: PANTOPRAZOLE 40 MG VIAL IV SCH (08:37)
[2016-05-15] MEDS: ALLOPURINOL 100 MG TABLET PO SCH (08:37)
[2016-05-15 08:50] LABS: BASOPHILS % (AUTO) 0.2 % (0.0-2.0); EOSINOPHILS # (AUTO) 0.1 /CMM (0.0-0.7); EOSINOPHILS % (AUTO) 0.7 % (0.0-6.0); HEMATOCRIT 34 % (39-51); HEMOGLOBIN 11.2 g/dL (13.5-17.5); LYMPHOCYTES # (AUTO) 1.6 /CMM (0.8-4.8); LYMPHOCYTES % (AUTO) 13.5 % (20.0-44.0); MEAN CORPUSCULAR HEMOGLOBIN 31 PG (26.0-33.0); MEAN CORPUSCULAR HGB CONC 33 g/dl (31.0-36.0); MEAN CORPUSCULAR VOLUME 93 fL (80-96); MONOCYTES # (AUTO) 0.9 /CMM (0.1-1.30); MONOCYTES % (AUTO) 7.6 % (2.0-12.0); NEUTROPHILS # (AUTO) 9.2 /CMM (1.8-8.9); PLATELET COUNT (AUTO) 330 /CMM (150-450); RDW COEFFICIENT OF VARIATION 13.2 (11.5-15.0); RED BLOOD CELL COUNT(AUTO) 3.64 MIL/uL (4.5-6.0); WHITE BLOOD COUNT (AUTO) 11.7 K/uL (4.3-11.0)
[2016-05-15] MEDS: METOPROLOL TARTRATE 25 MG TABLET PO SCH (09:00)
--- NOTE | 2016-05-15 13:00 | NUR ---
RN MS NOTES PT IN BED, AWAKE, ALERT AND ORIENTED, NO COMPLAINT OF PAIN, RESPIRATIONS NORMAL, CALL LIGHT WITHIN REACH, MISSY AT BEDSIDE, PLAN OF CARE DISCUSSED WITH PT AND , VERBALIZED UNDERSTANDING, PT SEEN BY DR. AWAD, IV FLUIDS INFUSING WELL, NEEDS ATTENDED.
[2016-05-15] MEDS ORDERED: LEVO750T21 PO (13:34)
[2016-05-15 16:00] VITALS: BP 97/59
--- NOTE | 2016-05-15 17:00 | NUR ---
RN MS NOTES PT IN BED, AWAKE, ALERT AND ORIENTED, DENIES PAIN, NOT IN DISTRESS, PT SEEN BY DR. CRUZ, DISCHARGE ORDER GIVEN, DISCHARGE AND MEDICATION INSTRUCTIONS PROVIDED TO PT AND , VERBALIZED UNDERSTANDING, BELONGINGS ACCOUNTED FOR, ASSISTED BY BAKER BENCH VIA WHEELCHAIR TO HOSPITAL LOBBY, LEFT WITH IN STABLE CONDITION.
== END 2016-05-15 17:14 | disposition home or self-care (01) | DRG 139 ==
LOC: ER 15:50 → TELE 18:53 → MED 05-14 16:54
PROVIDERS: ADMIT Student in an Organized Health Care Education/Training Program; ATTEND Student in an Organized Health Care Education/Training Program
DX: J15.9 Unspecified bacterial pneumonia (principal); N17.0 Acute kidney failure with tubular necrosis; K29.70 Gastritis, unspecified, without bleeding; E86.0 Dehydration; N17.9 Acute kidney failure, unspecified; E11.9 Type 2 diabetes mellitus without complications; E78.5 Hyperlipidemia, unspecified; I25.10 Atherosclerotic heart disease of native coronary artery without angina pectoris; Z98.61 Coronary angioplasty status; M10.00 Idiopathic gout, unspecified site; I10 Essential (primary) hypertension
CPT/HCPCS: 36415; 71010-TC; 80048-TC; 80061-TC; 80076-TC; 81000-TC; 82962-TC; 83605-TC; 83735-TC; 83880; 84100-TC; 84484-TC; 85025-TC; 85730-TC; 87040-TC; 87081-TC; A4606; C9113; J0456; J0696; J1815; J2270; J2405; J3475; J7030; J7060; Z7610